=== PATIENT | female | born 1970 | race Caucasian/White ===

== ENCOUNTER 2018-11-30 09:56 | Emergency (ER) | payer OTHER ==
[~2018-11-30] VITALS: Ht 170.2 cm; Wt 83.0 kg
[2018-11-30] MEDS ORDERED: MOBIC7.5 MG PO (10:14)
[2018-11-30] MEDS ORDERED: GABAPENTIN 100100 MG PO (10:14)
[2018-11-30] MEDS ORDERED: CYMBALTA30 MG PO (10:14)
[2018-11-30] MEDS ORDERED: CENTANY30 GM TOP (12:09)
[2018-11-30 12:32] VITALS: BP 132/55
== END 2018-11-30 12:33 | disposition home or self-care (01) ==
LOC: M.ERS 09:56
DX: S93.692A Other sprain of left foot, initial encounter (principal); S93.691A Other sprain of right foot, initial encounter; S80.211A Abrasion, right knee, initial encounter; G62.9 Polyneuropathy, unspecified; I10 Essential (primary) hypertension; Z88.1 Allergy status to other antibiotic agents; Z88.8 Allergy status to other drugs, medicaments and biological substances; Z90.49 Acquired absence of other specified parts of digestive tract; Z90.2 Acquired absence of lung [part of]; W10.9XXA Fall (on) (from) unspecified stairs and steps, initial encounter; Y92.89 Other specified places as the place of occurrence of the external cause; Y93.89 Activity, other specified; Y99.8 Other external cause status